=== PATIENT | male | born 1965 | race Hispanic/Latino ===

== ENCOUNTER 2017-12-27 14:45 | Emergency (ER) | payer OTHER, SELFPAY ==
[2017-12-27 14:50] VITALS: BP 130/80; PULSE 85; RESP 14; TEMP 36.9; O2SAT 99
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
[2017-12-27 15:30] VITALS: BP 106/68; PULSE 76; RESP 17; O2SAT 97
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
[2017-12-27 16:01] VITALS: BP 106/68; PULSE 77; RESP 16; O2SAT 98
== END 2017-12-27 16:02 | disposition home or self-care (01) ==
PROVIDERS: Emergency Provider Emergency Medicine
DX: S20.219A Contusion of unspecified front wall of thorax, initial encounter (principal); V43.62XA Car passenger injured in collision with other type car in traffic accident, initial encounter
CPT/HCPCS: 71046; 99282; 99283

== ENCOUNTER → 2020-07-05 10:59 | Outpatient (CLI) | payer OTHER, SELFPAY ==
[2020-07-05] MEDS: COVID-19 VACC #1, MRNA(MOD) 100 MCG/0.5 ML VIAL IM (11:22)
== END ==
PROVIDERS: Visit Provider Internal Medicine
DX: Z23 Encounter for immunization (principal)
CPT/HCPCS: 0011A; 91301

== ENCOUNTER → 2020-08-02 11:10 | Outpatient (CLI) | payer OTHER, SELFPAY ==
[2020-08-02] MEDS: COVID-19 VACC #2, MRNA(MOD) 100 MCG/0.5 ML VIAL IM (11:16)
== END ==
PROVIDERS: Visit Provider Internal Medicine
DX: Z23 Encounter for immunization (principal)
CPT/HCPCS: 0012A; 91301

== ENCOUNTER 2022-08-16 11:12 | Observation (INO) | payer SELFPAY ==
[2022-08-16] VITALS (11 sets, daily range): BP systolic 112–148; BP diastolic 60–81; PULSE 81–91; RESP 16–20; TEMP 36.6–37.9; O2SAT 94–99; BMI 22.6
[2022-08-16 11:45] LABS: Add Manual Diff / Slide Review NO; Basophils Absolute Auto 0 /uL (0-100); Basophils Percent Auto 0.3 % (0-2); Eosinophils Absolute Auto 0 /uL (0-450); Hematocrit 42.3 % (41-53); Hemoglobin 14.5 g/dL (13.5-17.5); Lymphocytes Absolute Auto 1000 /uL (1100-4500); Mean Corpuscular HGB Conc 34.3 % (30-36); Mean Corpuscular Hemoglobin 31.2 PG (26-34); Monocytes Absolute Auto 600 /uL (0-900); Monocytes Percent Auto 4.5 % (3-14); Neutrophils Absolute Auto 12500 /uL (1500-7000); Neutrophils Percent Auto 88.2 % (50-75); Platelet Count 332 X10^3/uL (150-400); Red Blood Cell Count 4.65 X10^6/uL (4.5-5.9); Red Cell Distribution Width 13.9 % (11.6-14.8); White Blood Cell Count 14.2 X10^3/uL (4.5-11.0)
[2022-08-16 11:57] LABS: Alanine Aminotransferase 28 IU/L (<50); Albumin 4.2 g/dL (3.5-5.0); Albumin Globulin Ratio 1.2 (1.0-2.8); Alkaline Phosphatase 84 U/L (38-126); Aspartate Aminotransferase 32 IU/L (17-59); BUN Creatinine Ratio 34.8 (6-22); Bilirubin Total 0.6 mg/dL (0.2-1.3); Blood Urea Nitrogen 16 mg/dL (9-20); Calcium 9.1 mg/dL (8.4-10.2); Carbon Dioxide 26 mmol/L (22-32); Chloride 103 mmol/L (98-107); Estimated Glomerular Filt Rate > 60 mL/min (>60); Globulin 3.4 g/dL (1.7-4.1); Glucose 126 mg/dL (70-100); HEMOLYSIS < 15 (0-50); Lipase 68 U/L (23-300); Sodium 136 mmol/L (137-145); Total Protein 7.6 g/dL (6.3-8.2)
[2022-08-16 11:58] LABS: Creatine Kinase 130 U/L (55-170)
[2022-08-16 12:09] LABS: Troponin I < 0.012 ng/mL (0.01-0.034)
[2022-08-16 12:13] LABS: CKMB % Relative Index 0.9 % (1.5-5.0); Creatine Kinase MB 1.14 ng/mL (<2.37)
--- NOTE | 2022-08-16 14:43 | DI.CT.S_ITS ---
PROCEDURE: CT ABDOMEN PELVIS W CON INDICATIONS: generalized/RLQ pn tenderness TECHNIQUE: After the administration of intravenous contrast, axial sections acquired from the lung bases to the pubic symphysis. Coronal and sagittal reformats were performed. For radiation dose reduction, the following was used: automated exposure control, adjustment of mA and/or kV according to patient size. COMPARISON: None. FINDINGS: Image quality: Excellent. Lung bases: Bibasilar atelectasis. Heart: Heart size is normal ABDOMEN: Liver: Liver is unremarkable in appearance without focal intrahepatic abnormalities. No intrahepatic or extrahepatic biliary ductal dilatation. Gallbladder: Gallbladder is unremarkable without CT evidence for acute inflammation. Biliary ducts: No intrahepatic or extrahepatic biliary ductal dilatation identified. Pancreas: Homogeneous enhancement without focal lesions or pancreatic ductal dilatation. No peripancreatic inflammation or organized fluid collections. Spleen: No splenomegaly Adrenal Glands: Unremarkable. Kidneys and Ureters: Left Kidney demonstrates no hydronephrosis. Partially exophytic hypodensity measuring fluid attenuation is compatible with a cyst. Left ureter is normal in course and caliber. No ureteral stone. There is a large, lobular heterogeneously enhancing mass in the inferior pole of the right kidney measuring approximately 7.5 x 7.0 cm in axial transverse dimension and approximately 11.5 cm in craniocaudal dimension. No right-sided hydronephrosis. Right ureter is normal in course and caliber. There is minimal perinephric stranding. Stomach and Bowel: Stomach, small bowel loops, and colon are unremarkable. The appendix is dilated up to 12 mm in diameter with minimal wall thickening and mild periappendiceal stranding. There are also associated appendicoliths. No evidence for perforation or abscess formation. Peritoneum: No abnormal intraperitoneal fluid. No free air. Ventral Wall: No hernias. Abdominal Nodes: No retroperitoneal or mesenteric adenopathy by size criteria. Vessels: Scattered atherosclerotic calcifications of the abdominal aorta and iliac vessels without aneurysmal dilatation. The inferior vena cava appears patent. PELVIS: Pelvic Organs: Unremarkable. Bladder: There is minimal circumferential urinary bladder wall thickening which may be related to incomplete distention; however, cystitis may have a similiar appearance. Pelvic Nodes: No enlarged lymph nodes. Miscellaneous: No hernias are seen. Bones: No acute vertebral body compression fractures. Multilevel spondylitic changes throughout the imaged spine. No suspicious osseous lesions. IMPRESSION: 1. Acute appendicitis without evidence for perforation or abscess formation. There are associated appendicoliths. 2. Large, lobulated right renal mass measuring 7.5 x 7.0 x 11.5 cm. This is highly suspicious for renal neoplasm. Recommend further evaluation by nonemergent urology consultation. Other chronic findings as above. Findings were discussed with Dr. Smith at 1643 hrs. Dictated by: Kurt Hudson M.D. on 08/16/2022 at 16:34 Approved by: Kurt Hudson M.D. on 08/16/2022 at 16:43
--- NOTE | 2022-08-16 14:45 | ED_ITS ---
HPI - Abdominal Pain <Eloina Smith PA-C - Last Filed: 08/16/22 18:44> General Chief Complaint: Abdominal Pain Stated Complaint: Upper ABD pain/N/bloating Time Seen by Provider: 08/16/22 14:06 Source: patient and family Mode of arrival: Ambulatory History of Present Illness HPI narrative: 57-year-old male presents with concern for abdominal pain since this morning at 4:00 a.m.. Patient states that he felt a little bit off last night when he went to bed, less had a meal at 8:00 p.m., around 4:00 a.m. he woke up due to pain in his belly. He states that he was getting up about every hour and going to the bathroom and having a small bowel movement and peeing thinking that this would help with his pain. His pain has progressively worsened since 4:00 a.m. and he describes it now as an 8/10. States it is worse if he sits up and walks or moves around. It is also worse if he presses on it. He states he is never had pain like this previously. Denies fevers but he feels like he is chilled. Patient states he still has appendix and has not had previous abdominal surgeries. Denies other symptoms including urgency, frequency, pain with urination, diarrhea, mucus or blood in his stool, dizziness lightheadedness, fevers or other symptoms. Related Data Home Medications Medication Instructions Recorded Confirmed No Known Home Medications 08/16/22 08/16/22 Allergies Allergy/AdvReac Type Severity Reaction Status Date / Time No Known Drug Allergies Allergy Verified 08/16/22 11:32 Review of Systems <Eloina Smith PA-C - Last Filed: 08/16/22 18:44> Review of Systems Narrative: See HPI Patient History <Eloina Smith PA-C - Last Filed: 08/16/22 18:44> Medical History Chronic back pain (Unknown) Shoulder pain (Unknown) Family History Father Age: 97 History of thyroid cancer Diabetes mellitus Essential hypertension Hyperlipidemia Mother Age: 88 History of stroke Essential hypertension Hyperlipidemia Sister Age: 55 Essential hypertension Grandfather No problems noted. Grandfather No problems noted. Social History household members: none Smoking Status: Current every day smoker alcohol intake: former Smoking Status: Current every day smoker Substance Use Type: does not use Exam <Eloina Smith PA-C - Last Filed: 08/16/22 18:44> Narrative Exam Narrative: GENERAL: 57 year old patient appears stated age. Well-developed patient, in mild distress. HEAD: Atraumatic. Normocephalic. EYES: Pupils equal round and reactive. Extraocular motions intact. No scleral icterus. No injection or drainage. ENT: Nose without bleeding, purulent drainage. Airway patent. NECK: Trachea midline. CARDIOVASCULAR: Regular rate and rhythm without murmurs, gallops, or rubs. RESPIRATORY: Clear to auscultation. Breath sounds equal bilaterally. No wheezes, rales, or rhonchi. GASTROINTESTINAL: There is generalized low abdominal tenderness primarily left and right, also periumbilical, there is significant tenderness over McBurney's point with positive Rovsing and positive obturator sign as well as positive heel tap. Negative Grier's sign. Abdomen soft, nondistended, no CVA tenderness. EXTREMITIES: No edema or joint tenderness. BACK: Nontender without deformity or crepitance. No flank tenderness. NEURO: AOx3. SKIN: No rash or erythema of visible areas Initial Vital Signs Initial Vital Signs: Vital Signs Temperature 98 F 08/16/22 11:14 Pulse Rate 85 08/16/22 11:14 Respiratory Rate 17 08/16/22 11:14 Blood Pressure 140/67 08/16/22 11:14 Pulse Oximetry 99 08/16/22 11:14 Oxygen Delivery Method Room Air 08/16/22 11:14 <Jodi Vieyra DO - Last Filed: 08/17/22 13:07> Initial Vital Signs Initial Vital Signs: Vital Signs Temperature 98 F 08/16/22 11:14 Pulse Rate 85 08/16/22 11:14 Respiratory Rate 17 08/16/22 11:14 Blood Pressure 140/67 08/16/22 11:14 Pulse Oximetry 99 08/16/22 11:14 Oxygen Delivery Method Room Air 08/16/22 11:14 Course <Eloina Smith PA-C - Last Filed: 08/16/22 18:44> Course Course Narrative: Radiology Dr. Hudson called regarding this patient's imaging study. Noted that he does have a current acute appendicitis that is uncomplicated but also noted concern for a large renal mass possibly consistent with renal cell carcinoma and strongly recommended close follow-up with Urology as an outpatient for further evaluation and care. 1642 Orders Ordered: Acetaminophen (Acetaminophen 325 Mg Tablet) 650 mg PO Q6H [facility] Last Admin: 08/17/22 11:30 Dose: 650 mg Documented By: Admin: 08/17/22 04:58 Dose: 650 mg Documented By: Admin: 08/17/22 02:52 Dose: Not Given Documented By: Admin: 08/16/22 18:00 Dose: 650 mg Documented By: SB Albuterol (Albuterol 2.5 Mg/3 Ml Neb (Adult)) 2.5 mg INH NOW PRN PRN Reason: Coughing, Wheezing, Dyspnea Amoxicillin/Clavulanate Potassium (Amoxicillin/Clav 875/125 Mg) 1 tab PO BID [facility] Last Admin: 08/17/22 11:30 Dose: 1 tab Documented By: JOSEPHINE Celecoxib (Celecoxib 200 Mg Capsule) 200 mg PO BID [facility] Last Admin: 08/17/22 08:22 Dose: 200 mg Documented By: Admin: 08/16/22 21:08 Dose: 200 mg Documented By: DAYANA Fentanyl (Fentanyl 100 Mcg/2 Ml Inj) 0 mcg IV Q5M PRN PRN Reason: Pain, Severe (7-10) Hydromorphone HCl (Hydromorphone 2 Mg Inj) 0 mg IV Q5M PRN PRN Reason: Pain, Severe (7-10) Sodium Chloride (Normal Saline 0.9%) 1,000 mls @ 100 mls/hr IV CONT [facility] Last Infusion: 08/17/22 04:58 Dose: 0 mls/hr Documented By: Admin: 08/16/22 18:03 Dose: 100 mls/hr Documented By: RON Meperidine HCl (Meperidine 50 Mg/Ml Inj) 25 mg IV PACUNOW PRN PRN Reason: Moderate pain or shivering Metoclopramide HCl (Metoclopramide 10 Mg/2 Ml Inj) 10 mg IV NOW PRN PRN Reason: Nausea And Vomiting Naloxone HCl (Naloxone 0.4 Mg/Ml Vial) 0.2 mg IV Q2MIN PRN PRN Reason: Opiate Reversal Ondansetron HCl (Ondansetron 4 Mg/2 Ml Inj) 4 mg IV NOW PRN PRN Reason: Nausea And Vomiting Last Admin: 08/16/22 14:52 Dose: 4 mg Documented By: AMU Ondansetron HCl (Ondansetron 4 Mg Odt) 4 mg PO NOW PRN PRN Reason: Nausea And Vomiting Last Admin: 08/16/22 21:08 Dose: 4 mg Documented By: AW Ondansetron HCl (Ondansetron 4 Mg/2 Ml Inj) 4 mg IV NOW PRN PRN Reason: Nausea And Vomiting Oxycodone HCl (Oxycodone Ir 5 Mg Tablet) 5 mg PO Q3HR PRN PRN Reason: Pain, Severe (7-10) Last Admin: 08/17/22 08:22 Dose: 5 mg Documented By: Admin: 08/17/22 04:57 Dose: 5 mg Documented By: Admin: 08/16/22 17:59 Dose: 5 mg Documented By: SB Oxycodone HCl (Oxycodone Ir 5 Mg Tablet) 5 mg PO PACUNOW PRN PRN Reason: Mild or moderate pain Discontinued Medications Bupivacaine HCl 30 ml/ (Epinephrine HCl 0.15 mg) 0 ml INJ NOW ONE Stop: 08/17/22 10:20 Last Admin: 08/17/22 10:20 Dose: 30 ml Documented By: PF Hydromorphone HCl (Hydromorphone 0.5 Mg Inj) 0.5 mg IV NOW ONE Stop: 08/16/22 14:42 Last Admin: 08/16/22 14:51 Dose: 0.5 mg Documented By: AMU Sodium Chloride (Normal Saline 0.9%) 1,000 mls @ 1,000 mls/hr IV BOLUS ONE Stop: 08/16/22 15:40 Last Infusion: 08/16/22 16:48 Dose: 0 mls/hr Documented By: Admin: 08/16/22 14:50 Dose: 1,000 mls/hr Documented By: AMU Piperacillin Sod/Tazobactam (Sod 4.5 gm/ Sodium Chloride) 100 mls @ 200 mls/hr IV NOW ONE Stop: 08/16/22 16:58 Last Infusion: 08/16/22 20:05 Dose: 0 mls/hr Documented By: Admin: 08/16/22 18:02 Dose: 200 mls/hr Documented By: SB Piperacillin Sod/Tazobactam (Sod 3.375 gm/ Sodium Chloride) 100 mls @ 25 mls/hr IV Q8H [facility] Last Infusion: 08/17/22 09:04 Dose: 25 mls/hr Documented By: Admin: 08/17/22 04:58 Dose: 25 mls/hr Documented By: Infusion: 08/17/22 02:52 Dose: 0 mls/hr Documented By: Admin: 08/16/22 21:08 Dose: 25 mls/hr Documented By: AW Lactated Ringer's (Lactated Ringers) 1,000 mls @ 42 mls/hr IV CONT [facility] Last Infusion: 08/17/22 11:08 Dose: 42 mls/hr Documented By: Admin: 08/17/22 10:57 Dose: 42 mls/hr Documented By: Infusion: 08/17/22 10:57 Dose: 42 mls/hr Documented By: Admin: 08/17/22 09:30 Dose: 42 mls/hr Documented By: CG Lactated Ringer's (Lactated Ringers) 1,000 mls @ 120 mls/hr IV CONT [facility] Last Admin: 08/17/22 11:26 Dose: Not Given Documented By: BT Scopolamine (Scopolamine 1 Patch) 1 patch TOP NOW ONE Stop: 08/16/22 17:02 Last Admin: 08/16/22 18:00 Dose: 1 patch Documented By: SB Consultations Consultation #1: Discussed this patient with Dr. Camacho who accepts the patient for obs and will do surgery versus antibiotics after discussion with the patient. Initiated Zosyn based on our discussion. [id number] Vital Signs Vital signs: Vital Signs - 8 hr 08/16/22 11:14 08/16/22 14:25 08/16/22 14:30 Temperature 98 F Pulse Rate 85 84 Respiratory Rate 17 Blood Pressure 140/67 148/81 H Pulse Oximetry 99 96 Oxygen Delivery Method Room Air 08/16/22 14:30 08/16/22 15:00 08/16/22 15:00 Temperature Pulse Rate 83 88 Respiratory Rate Blood Pressure 130/69 Pulse Oximetry 95 94 Oxygen Delivery Method 08/16/22 15:30 08/16/22 15:49 08/16/22 15:49 Temperature Pulse Rate 87 91 H Respiratory Rate 20 16 Blood Pressure 145/70 H Pulse Oximetry 98 97 Oxygen Delivery Method Room Air 08/16/22 16:00 08/16/22 16:00 08/16/22 16:30 Temperature Pulse Rate 83 Respiratory Rate Blood Pressure 148/71 H 148/72 H Pulse Oximetry 96 Oxygen Delivery Method 08/16/22 16:30 08/16/22 17:00 08/16/22 17:00 Temperature Pulse Rate 81 82 Respiratory Rate Blood Pressure 128/65 Pulse Oximetry 97 97 Oxygen Delivery Method <Jodi Vieyra, - Last Filed: 08/17/22 13:07> Orders Ordered: Acetaminophen (Acetaminophen 325 Mg Tablet) 650 mg PO Q6H [facility] Last Admin: 08/17/22 11:30 Dose: 650 mg Documented By: Admin: 08/17/22 04:58 Dose: 650 mg Documented By: Admin: 08/17/22 02:52 Dose: Not Given Documented By: Admin: 08/16/22 18:00 Dose: 650 mg Documented By: SB Albuterol (Albuterol 2.5 Mg/3 Ml Neb (Adult)) 2.5 mg INH NOW PRN PRN Reason: Coughing, Wheezing, Dyspnea Amoxicillin/Clavulanate Potassium (Amoxicillin/Clav 875/125 Mg) 1 tab PO BID [facility] Last Admin: 08/17/22 11:30 Dose: 1 tab Documented By: JOSEPHINE Celecoxib (Celecoxib 200 Mg Capsule) 200 mg PO BID [facility] Last Admin: 08/17/22 08:22 Dose: 200 mg Documented By: Admin: 08/16/22 21:08 Dose: 200 mg Documented By: AW Fentanyl (Fentanyl 100 Mcg/2 Ml Inj) 0 mcg IV Q5M PRN PRN Reason: Pain, Severe (7-10) Hydromorphone HCl (Hydromorphone 2 Mg Inj) 0 mg IV Q5M PRN PRN Reason: Pain, Severe (7-10) Sodium Chloride (Normal Saline 0.9%) 1,000 mls @ 100 mls/hr IV CONT [facility] Last Infusion: 08/17/22 04:58 Dose: 0 mls/hr Documented By: Admin: 08/16/22 18:03 Dose: 100 mls/hr Documented By: SB Meperidine HCl (Meperidine 50 Mg/Ml Inj) 25 mg IV PACUNOW PRN PRN Reason: Moderate pain or shivering Metoclopramide HCl (Metoclopramide 10 Mg/2 Ml Inj) 10 mg IV NOW PRN PRN Reason: Nausea And Vomiting Naloxone HCl (Naloxone 0.4 Mg/Ml Vial) 0.2 mg IV Q2MIN PRN PRN Reason: Opiate Reversal Ondansetron HCl (Ondansetron 4 Mg/2 Ml Inj) 4 mg IV NOW PRN PRN Reason: Nausea And Vomiting Last Admin: 08/16/22 14:52 Dose: 4 mg Documented By: AMU Ondansetron HCl (Ondansetron 4 Mg Odt) 4 mg PO NOW PRN PRN Reason: Nausea And Vomiting Last Admin: 08/16/22 21:08 Dose: 4 mg Documented By: AW Ondansetron HCl (Ondansetron 4 Mg/2 Ml Inj) 4 mg IV NOW PRN PRN Reason: Nausea And Vomiting Oxycodone HCl (Oxycodone Ir 5 Mg Tablet) 5 mg PO Q3HR PRN PRN Reason: Pain, Severe (7-10) Last Admin: 08/17/22 08:22 Dose: 5 mg Documented By: Admin: 08/17/22 04:57 Dose: 5 mg Documented By: Admin: 08/16/22 17:59 Dose: 5 mg Documented By: SB Oxycodone HCl (Oxycodone Ir 5 Mg Tablet) 5 mg PO PACUNOW PRN PRN Reason: Mild or moderate pain Discontinued Medications Bupivacaine HCl 30 ml/ (Epinephrine HCl 0.15 mg) 0 ml INJ NOW ONE Stop: 08/17/22 10:20 Last Admin: 08/17/22 10:20 Dose: 30 ml Documented By: PF Hydromorphone HCl (Hydromorphone 0.5 Mg Inj) 0.5 mg IV NOW ONE Stop: 08/16/22 14:42 Last Admin: 08/16/22 14:51 Dose: 0.5 mg Documented By: AMU Sodium Chloride (Normal Saline 0.9%) 1,000 mls @ 1,000 mls/hr IV BOLUS ONE Stop: 08/16/22 15:40 Last Infusion: 08/16/22 16:48 Dose: 0 mls/hr Documented By: Admin: 08/16/22 14:50 Dose: 1,000 mls/hr Documented By: AMU Piperacillin Sod/Tazobactam (Sod 4.5 gm/ Sodium Chloride) 100 mls @ 200 mls/hr IV NOW ONE Stop: 08/16/22 16:58 Last Infusion: 08/16/22 20:05 Dose: 0 mls/hr Documented By: Admin: 08/16/22 18:02 Dose: 200 mls/hr Documented By: SB Piperacillin Sod/Tazobactam (Sod 3.375 gm/ Sodium Chloride) 100 mls @ 25 mls/hr IV Q8H [facility] Last Infusion: 08/17/22 09:04 Dose: 25 mls/hr Documented By: Admin: 08/17/22 04:58 Dose: 25 mls/hr Documented By: Infusion: 08/17/22 02:52 Dose: 0 mls/hr Documented By: Admin: 08/16/22 21:08 Dose: 25 mls/hr Documented By: AW Lactated Ringer's (Lactated Ringers) 1,000 mls @ 42 mls/hr IV CONT [facility] Last Infusion: 08/17/22 11:08 Dose: 42 mls/hr Documented By: Admin: 08/17/22 10:57 Dose: 42 mls/hr Documented By: Infusion: 08/17/22 10:57 Dose: 42 mls/hr Documented By: Admin: 08/17/22 09:30 Dose: 42 mls/hr Documented By: CG Lactated Ringer's (Lactated Ringers) 1,000 mls @ 120 mls/hr IV CONT [facility] Last Admin: 08/17/22 11:26 Dose: Not Given Documented By: BT Scopolamine (Scopolamine 1 Patch) 1 patch TOP NOW ONE Stop: 08/16/22 17:02 Last Admin: 08/16/22 18:00 Dose: 1 patch Documented By: SB Vital Signs Vital signs: Vital Signs - 8 hr 08/16/22 11:14 08/16/22 14:25 08/16/22 14:30 Temperature 98 F Pulse Rate 85 84 Respiratory Rate 17 Blood Pressure 140/67 148/81 H Pulse Oximetry 99 96 Oxygen Delivery Method Room Air 08/16/22 14:30 08/16/22 15:00 08/16/22 15:00 Temperature Pulse Rate 83 88 Respiratory Rate Blood Pressure 130/69 Pulse Oximetry 95 94 Oxygen Delivery Method 08/16/22 15:30 08/16/22 15:49 08/16/22 15:49 Temperature Pulse Rate 87 91 H Respiratory Rate 20 16 Blood Pressure 145/70 H Pulse Oximetry 98 97 Oxygen Delivery Method Room Air 08/16/22 16:00 08/16/22 16:00 08/16/22 16:30 Temperature Pulse Rate 83 Respiratory Rate Blood Pressure 148/71 H 148/72 H Pulse Oximetry 96 Oxygen Delivery Method 08/16/22 16:30 08/16/22 17:00 08/16/22 17:00 Temperature Pulse Rate 81 82 Respiratory Rate Blood Pressure 128/65 Pulse Oximetry 97 97 Oxygen Delivery Method MDM - Abdominal Pain <Eloina Smith PA-C - Last Filed: 08/16/22 18:44> Differential Diagnosis Differential diagnosis: Likely abdominal pain, acute appendicitis, constipation and diverticulitis Medical Records Attestation: I reviewed the patient's medical records. Lab Data Attestation: I reviewed the patient's lab results. 08/16/22 11:25 08/16/22 11:25 Labs: Lab Results 08/16/22 08/16/22 08/16/22 Range/Units 11:25 11:25 11:25 WBC 14.2 H (4.5-11.0) X10^3/uL RBC 4.65 (4.5-5.9) X10^6/uL Hgb 14.5 (13.5-17.5) g/dL Hct 42.3 (41-53) % MCV 91.0 (80-100) fL MCH 31.2 (26-34) PG MCHC 34.3 (30-36) % RDW 13.9 (11.6-14.8) % Plt Count 332 (150-400) X10^3/uL Neut % (Auto) 88.2 H (50-75) % Lymph % (Auto) 7.0 L (25-40) % Sierra % (Auto) 4.5 (3-14) % Eos % (Auto) 0.0 L (2-4) % Baso % (Auto) 0.3 (0-2) % Neut # (Auto) 44106 H (0703-9149) /uL Lymph # (Auto) 1000 L (5758-2355) /uL Sierra # (Auto) 600 (0-900) /uL Eos # (Auto) 0 (0-450) /uL Baso # (Auto) 0 (0-100) /uL Sodium 136 L (137-145) mmol/L Potassium 4.0 (3.4-5.1) mmol/L Chloride 103 (98-107) mmol/L Carbon Dioxide 26 (22-32) mmol/L BUN 16 (9-20) mg/dL Creatinine 0.46 L (0.66-1.25) mg/dL Estimated GFR > 60 (>60) mL/min BUN/Creatinine Ratio 34.8 H (6-22) Glucose 126 H (70-100) mg/dL Calcium 9.1 (8.4-10.2) mg/dL Total Bilirubin 0.6 (0.2-1.3) mg/dL AST 32 (17-59) IU/L ALT 28 (<50) IU/L Alkaline Phosphatase 84 (38-126) U/L Total Creatine Kinase 130 (55-170) U/L CK-MB (CK-2) 1.14 (<2.37) ng/mL CK-MB (CK-2) Rel Index 0.9 L (1.5-5.0) % Troponin I < 0.012 (0.01-0.034) ng/mL Total Protein 7.6 (6.3-8.2) g/dL Albumin 4.2 (3.5-5.0) g/dL Globulin 3.4 (1.7-4.1) g/dL Albumin/Globulin Ratio 1.2 (1.0-2.8) Lipase 68 (23-300) U/L Point of care testing: Urine Dip Bedside Urine Glucose Negative Bedside Urine Bilirubin - Negative Bedside Urine Ketone +/- 5 Urine Specific Maljamar 1.015 Bedside Urine Occult Blood - Negative Bedside Urine pH 7 Bedside Urine Protein - Negative Bedside Urine Urobilinogen - Negative Bedside Urine Nitrite - Negative Bedside Urine Leukocytes - Negative Esterase Imaging Data CT scan - abdomen/pelvis: My Impression: Agree with Radiology interpretation Radiologist's Impression: [address] [address] [address] Scan Report Signed Patient: Andrew Stewart MR#: [id number] : 1965 Acct:[id number] Age/Sex: 57 / M Date of Service: 08/16/22 Loc: ED Accession Number: [id number] ?? Procedure: CT abdomen pelvis w con Ordering Provider: Eloina Smith P.A-C PROCEDURE:? CT ABDOMEN PELVIS W CON ? INDICATIONS:? generalized/RLQ pn tenderness ? TECHNIQUE:? After the administration of intravenous contrast, axial sections acquired from the lung bases to the pubic symphysis.? Coronal and sagittal reformats were performed.? For radiation dose reduction, the following was used:? automated exposure control, adjustment of mA and/or kV according to patient size.? ? COMPARISON:? None. ? FINDINGS:? Image quality:? Excellent.? ? Lung bases:? Bibasilar atelectasis. Heart:? Heart size is normal ? ABDOMEN: Liver: Liver is unremarkable in appearance without focal intrahepatic abnormalit ies. No intrahepatic or extrahepatic biliary ductal dilatation. Gallbladder:? Gallbladder is unremarkable without CT evidence for acute inflammation.? ? Biliary ducts: No intrahepatic or extrahepatic biliary ductal dilatation identified.? Pancreas: Homogeneous enhancement without focal lesions or pancreatic ductal dilatation.? No peripancreatic inflammation or organized fluid collections. Spleen:? No splenomegaly Adrenal Glands:? Unremarkable.? ? Kidneys and Ureters:? Left Kidney demonstrates no hydronephrosis.? Partially exophytic hypodensity measuring fluid attenuation is compatible with a cyst.? Left ureter is normal in course and caliber.? No ureteral stone. There is a large, lobular heterogeneously enhancing mass in the inferior pole of the right kidney measuring approximately 7.5 x 7.0 cm in axial transverse dimension and approximately 11.5 cm in craniocaudal dimension.? No right-sided hydronephrosis.? Right ureter is normal in course and caliber.? There is minimal perinephric stranding. ? Stomach and Bowel:? Stomach, small bowel loops, and colon are unremarkable.? The appendix is dilated up to 12 mm in diameter with minimal wall thickening and mild periappendiceal stranding.? There are also associated appendicoliths.? No evidence for perforation or abscess formation. Peritoneum:? No abnormal intraperitoneal fluid.? No free air.? ? Ventral Wall: ? No hernias.? Abdominal Nodes:? No retroperitoneal or mesenteric adenopathy by size criteria.? Vessels: Scattered atherosclerotic calcifications of the abdominal aorta and iliac vessels without aneurysmal dilatation.? The inferior vena cava appears patent. ? PELVIS: Pelvic Organs:? Unremarkable.? ? Bladder:? There is minimal circumferential urinary bladder wall thickening which may be related to incomplete distention; however, cystitis may have a similiar appearance.? Pelvic Nodes: No enlarged lymph nodes.? Miscellaneous: No hernias are seen. ? ? ? Bones:? No acute vertebral body compression fractures. Multilevel spondylitic changes throughout the imaged spine.? No suspicious osseous lesions. ? IMPRESSION:? ? 1. Acute appendicitis without evidence for perforation or abscess formation.? There are associated appendicoliths. ? 2. Large, lobulated right renal mass measuring 7.5 x 7.0 x 11.5 cm.? This is highly suspicious for renal neoplasm.? Recommend further evaluation by nonemergent urology consultation.? ? Other chronic findings as above.? ? Findings were discussed with Dr. Smith at 1643 hrs. ? ? ? Dictated by: Kurt Hudson M.D. on 08/16/2022 at 16:34 ? ? Approved by: Kurt Hudson M.D. on 08/16/2022 at 16:43?? Treatment and Disposition Shared decision making:: Shared decision-making was used indeterminate this portions plan of care treatment in the emergency department MDM Narrative Medical decision making narrative: This is a 57-year-old male who presents with concern for fairly rapid onset of abdominal pain around 4:00 a.m. generalized worsening now 8/10. Exam findings are concerning for appendicitis versus possibly other infectious intra-abdominal process. Patient does have a leukocytosis greater than 14. Pain control, fluid bolus and CT abdomen pelvis with contrast are ordered for further evaluation and care after initial exam. CT returns notable for uncomplicated acute appendicitis with appendicoliths present, radiology also notes the patient has a large approximately 7-1/2 cm x 7-1/2 cm renal mass likely consistent with renal cell carcinoma. Discussed the patient with on-call surgeon Dr. Camacho who agrees to accept the patient under obs and will either performed surgery or treat with antibiotics. Initiated Zosyn in ER. <Jodi Vieyra, DO - Last Filed: 08/17/22 13:07> Lab Data Labs: Lab Results 08/16/22 08/16/22 08/16/22 Range/Units 11:25 11:25 11:25 WBC 14.2 H (4.5-11.0) X10^3/uL RBC 4.65 (4.5-5.9) X10^6/uL Hgb 14.5 (13.5-17.5) g/dL Hct 42.3 (41-53) % MCV 91.0 (80-100) fL MCH 31.2 (26-34) PG MCHC 34.3 (30-36) % RDW 13.9 (11.6-14.8) % Plt Count 332 (150-400) X10^3/uL Neut % (Auto) 88.2 H (50-75) % Lymph % (Auto) 7.0 L (25-40) % Sierra % (Auto) 4.5 (3-14) % Eos % (Auto) 0.0 L (2-4) % Baso % (Auto) 0.3 (0-2) % Neut # (Auto) 69605 H (7945-6059) /uL Lymph # (Auto) 1000 L (7693-5931) /uL Sierra # (Auto) 600 (0-900) /uL Eos # (Auto) 0 (0-450) /uL Baso # (Auto) 0 (0-100) /uL Sodium 136 L (137-145) mmol/L Potassium 4.0 (3.4-5.1) mmol/L Chloride 103 (98-107) mmol/L Carbon Dioxide 26 (22-32) mmol/L BUN 16 (9-20) mg/dL Creatinine 0.46 L (0.66-1.25) mg/dL Estimated GFR > 60 (>60) mL/min BUN/Creatinine Ratio 34.8 H (6-22) Glucose 126 H (70-100) mg/dL Calcium 9.1 (8.4-10.2) mg/dL Total Bilirubin 0.6 (0.2-1.3) mg/dL AST 32 (17-59) IU/L ALT 28 (<50) IU/L Alkaline Phosphatase 84 (38-126) U/L Total Creatine Kinase 130 (55-170) U/L CK-MB (CK-2) 1.14 (<2.37) ng/mL CK-MB (CK-2) Rel Index 0.9 L (1.5-5.0) % Troponin I < 0.012 (0.01-0.034) ng/mL Total Protein 7.6 (6.3-8.2) g/dL Albumin 4.2 (3.5-5.0) g/dL Globulin 3.4 (1.7-4.1) g/dL Albumin/Globulin Ratio 1.2 (1.0-2.8) Lipase 68 (23-300) U/L Point of care testing: Urine Dip Bedside Urine Glucose Negative Bedside Urine Bilirubin - Negative Bedside Urine Ketone +/- 5 Urine Specific Maljamar 1.015 Bedside Urine Occult Blood - Negative Bedside Urine pH 7 Bedside Urine Protein - Negative Bedside Urine Urobilinogen - Negative Bedside Urine Nitrite - Negative Bedside Urine Leukocytes - Negative Esterase Discharge Plan Departure Patient Disposition: Admitted as Observation Clinical Impression: Acute appendicitis Admit Date/Time: 08/16/22 17:02 Admit Provider: Kaykay Camacho <Jodi Vieyra DO - Last Filed: 08/17/22 13:07> Cosign ED Attending Cosignature Attestation: I was immediately available in the department for consultation. Documentation has been reviewed.
[2022-08-16] MEDS: SODIUM CHLORIDE 0.9% 1,000 ML 1000 ML IV (14:50)
[2022-08-16] MEDS: HYDROMORPHONE 0.5 MG INJ IV (14:51)
[2022-08-16] MEDS: ONDANSETRON 4 MG/2 ML INJ IV (14:52)
[2022-08-16] MEDS: OXYCODONE IR 5 MG TABLET PO (17:59)
[2022-08-16] MEDS: SCOPOLAMINE 1 PATCH TOP (18:00)
[2022-08-16] MEDS: ACETAMINOPHEN 325 MG TABLET 650 MG PO (18:00)
[2022-08-16] MEDS: PIPERACILLIN/TAZO 4.5 GM in SODIUM CHLORIDE 0.9% 100 ML IV (18:02)
[2022-08-16] MEDS: SODIUM CHLORIDE 0.9% 1,000 ML 100 ML IV (18:03)
[2022-08-16 18:29] LABS: COVID19 -Nasal RAPID Negative (Negative)
--- NOTE | 2022-08-16 18:58 | PC.NURSE ---
Day shift: Patient transported up to floor with ED nurse and his 2 nieces. Patient speaks primarily Danish, though he states he understands most Sami. Patient would like a mechanical intern for when the surgeon comes to talk about his procedure. Plan for lapriscopic appendectomy tomorrow. Patient is independent with ADLs. R AC IV running IV fluids and IV antibx. Patient states pain 8\10 with movement and 2/10 when lying still. R abdominal pain. Skin intact. VS WNL.
[2022-08-16] MEDS: ONDANSETRON 4 MG ODT PO (21:08)
[2022-08-16] MEDS: PIPERACILLIN/TAZO 3.375 GM in SODIUM CHLORIDE 0.9% 100 ML IV (21:08)
[2022-08-16] MEDS: CELECOXIB 200 MG CAPSULE PO (21:08)
[2022-08-17] VITALS (13 sets, daily range): BP systolic 104–136; BP diastolic 46–66; PULSE 76–98; RESP 16–22; TEMP 36.6–37.7; O2SAT 93–98
--- NOTE | 2022-08-17 | PATH_ITS ---
[facility] Accession Number: [id number] No. of containers..01 Tissue . 01 Material submitted: . appendix - APPENDIX . 01 Diagnosis: Appendix, Appendectomy: Acute suppurative appendicitis and periappendicitis. MRV 08/22/2022 1452 Local . 01 Electronically signed: . Jojo Carranza MD, Pathologist NPI- [id number] . 01 Gross description: . The specimen is received in formalin labeled with the patient's name, , and appendix, and consists of a vermiform appendix measuring 6.2 cm in length by 1.1 cm in diameter with arredondo-olivier serosa and adherent olivier material consistent with exudate. A moderate amount of mesoappendix is attached extending out to 2.1 cm. The margin is received closed with erma which are removed and the margin is inked blue. Sectioning reveals the lumen contains brown semi-solid material and averages 0.6 cm in diameter. The acuña are arredondo-olivier and average 0.1 cm thick with no perforations or lesions grossly identified. Fleet Driver sections to include the margin, one-half of the bisected distal tip, and cross-section are submitted in cassette A1. ([id number]) /ANNA 08/21/2022 1135 Local . 01 Pathologist provided ICD-10: K35.80 . 01 CPT . 933965 Specimen Comment: A courtesy copy of this report has been sent to [phone] Performed at: 01 [facility] [address] [place] [address] [address] [facility], [place], [place] [id number] MD Greg Garvey MD Phone: [phone]
[2022-08-17] MEDS: OXYCODONE IR 5 MG TABLET PO ×2 (04:57→08:22)
[2022-08-17] MEDS: ACETAMINOPHEN 325 MG TABLET 650 MG PO ×2 (04:58→11:30)
[2022-08-17] MEDS: PIPERACILLIN/TAZO 3.375 GM in SODIUM CHLORIDE 0.9% 100 ML IV (04:58)
--- NOTE | 2022-08-17 07:55 | SUR.OPER ---
Supine on padded OR bed, head on pillow, arms padded and tucked at sides, legs uncrossed, safety belt at thigh, tape over blanket over lower legs .
--- NOTE | 2022-08-17 07:56 | P.HP_ITS ---
History of Present Illness History of Present Illness Date Patient Seen: 08/17/22 Time Patient Seen: 07:56 Chief complaint: Upper ABD pain/N/bloating Narrative: Over 24hrs of abdominal pain, localizing to right sided abdomen. 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 Abdominal pain is sharp and intermittent, associated with nausea and bloating. No blood in urine per patient. [facility] Medical History Chronic back pain (Unknown) Shoulder pain (Unknown) Family History Father Age: 97 History of thyroid cancer Diabetes mellitus Essential hypertension Hyperlipidemia Mother Age: 88 History of stroke Essential hypertension Hyperlipidemia Sister Age: 55 Essential hypertension Grandfather No problems noted. Grandfather No problems noted. Social History household members: none Smoking Status: Current every day smoker alcohol intake: former Meds Home Medications and Allergies Home Medications Medication Instructions Recorded Confirmed Type No Known Home Medications 08/16/22 08/16/22 History Allergies Allergy/AdvReac Type Severity Reaction Status Date / Time No Known Drug Allergies Allergy Verified 08/16/22 11:32 Review of Systems Review of Systems ROS: Yes All systems reviewed with the patient and are negative except as otherwise documented Exam Vital Signs (past 8 hours): - 08/17/22 04:08 Temperature 99.8 F H Pulse Rate 86 Respiratory Rate 16 Blood Pressure 118/63 Pulse Oximetry 95 Oxygen Delivery Method Room Air Oxygen Flow Rate 0 Const General: cooperative, healthy appearing and comfortable Nutritional Appearance: average body habitus [facility] Head: normocephalic and laceration (left forehead and holiness lacerations with bruising, no issues) Face and sinus: normal facial exam Eyes General: appearance normal, both eyes and all related structures Sclera: sclerae normal Neck Neck: trachea midline Resp Effort & Inspection: normal respiratory effort and able to speak in complete sentences Cardio Rate: regular rate Rhythm: regular rhythm GI Palpation: soft Other: mild tenderness to palpation RLQ. Skin General: turgor normal Neuro General: patient alert, patient awake and patient oriented x3 Cognition: normal cognition Extrem Left upper extremity: edema (bruising and edema with a upper arm posterior hematoma. no wounds. ) Right lower extremity: edema (2 anterior tibial wounds from previous lacerat ions, sutures removed) Details: 3+ Left lower extremity: edema Details: 1+ Other: single anterior old laceration with sutures removed. Psych Mental Status: mental status grossly normal Judgment: judgment good Objective Labs 08/16/22 11:25 08/16/22 11:25 Labs: Laboratory Results - last 24 hr 08/16/22 08/16/22 08/16/22 11:25 11:25 11:25 WBC 14.2 H RBC 4.65 Hgb 14.5 Hct 42.3 MCV 91.0 MCH 31.2 MCHC 34.3 RDW 13.9 Plt Count 332 Neut % (Auto) 88.2 H Lymph % (Auto) 7.0 L [place] % (Auto) 4.5 Eos % (Auto) 0.0 L Baso % (Auto) 0.3 Neut # (Auto) 80453 H Lymph # (Auto) 1000 L [place] # (Auto) 600 Eos # (Auto) 0 Baso # (Auto) 0 Sodium 136 L Potassium 4.0 Chloride 103 Carbon Dioxide 26 BUN 16 Creatinine 0.46 L Estimated GFR > 60 BUN/Creatinine Ratio 34.8 H Glucose 126 H Calcium 9.1 Total Bilirubin 0.6 AST 32 ALT 28 Alkaline Phosphatase 84 Total Creatine Kinase 130 CK-MB (CK-2) 1.14 CK-MB (CK-2) Rel Index 0.9 L Troponin I < 0.012 Total Protein 7.6 Albumin 4.2 Globulin 3.4 Albumin/Globulin Ratio 1.2 Lipase 68 SARS-CoV-2 (PCR) 08/16/22 18:05 WBC RBC Hgb Hct MCV MCH MCHC RDW Plt Count Neut % (Auto) Lymph % (Auto) [place] % (Auto) Eos % (Auto) Baso % (Auto) Neut # (Auto) Lymph # (Auto) [place] # (Auto) Eos # (Auto) Baso # (Auto) Sodium Potassium Chloride Carbon Dioxide BUN Creatinine Estimated GFR BUN/Creatinine Ratio Glucose Calcium Total Bilirubin AST ALT Alkaline Phosphatase Total Creatine Kinase CK-MB (CK-2) CK-MB (CK-2) Rel Index Troponin I Total Protein Albumin Globulin Albumin/Globulin Ratio Lipase SARS-CoV-2 (PCR) Negative Assessment & Plan Assessment & Plan narrative: Multiple falls with facial wounds, soft tissue contusions and lower bilateral extremity lacerations that have superficial infections addressed already with suture removal. Plan: compression dressing on both lower legs with Daily wet to dry dressings of anterior lower leg wounds. compression wrap on left arm from wrist to shoulder. Can remove face sutures in 2 days. COVID-19 COVID-19 status: Negative Time Spent With Patient Time with patient: less than 30 minutes
[2022-08-17] MEDS: CELECOXIB 200 MG CAPSULE PO (08:22)
--- NOTE | 2022-08-17 08:31 | P.HP_ITS ---
History of Present Illness History of Present Illness Date Patient Seen: 08/17/22 Time Patient Seen: 08:32 Chief complaint: Upper ABD pain/N/bloating Narrative: Over 24hrs of abdominal pain, localizing to right sided abdomen. 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 Abdominal pain is sharp and intermittent, associated with nausea and bloating. No blood in urine per patient. [facility] Medical History Chronic back pain (Unknown) Shoulder pain (Unknown) Family History Father Age: 97 History of thyroid cancer Diabetes mellitus Essential hypertension Hyperlipidemia Mother Age: 88 History of stroke Essential hypertension Hyperlipidemia Sister Age: 55 Essential hypertension Grandfather No problems noted. Grandfather No problems noted. Social History household members: none Smoking Status: Current every day smoker alcohol intake: former Meds Home Medications and Allergies Home Medications Medication Instructions Recorded Confirmed Type No Known Home Medications 08/16/22 08/16/22 History Allergies Allergy/AdvReac Type Severity Reaction Status Date / Time No Known Drug Allergies Allergy Verified 08/16/22 11:32 Review of Systems Review of Systems ROS: Yes All systems reviewed with the patient and are negative except as otherwise documented Exam Vital Signs (past 8 hours): - 08/17/22 04:08 08/17/22 08:07 Temperature 99.8 F H 99.0 F Pulse Rate 86 85 Respiratory Rate 16 16 Blood Pressure 118/63 118/58 L Pulse Oximetry 95 98 Oxygen Delivery Method Room Air Oxygen Flow Rate 0 Const General: cooperative and comfortable Nutritional Appearance: average body habitus [facility] Head: normocephalic and atraumatic Eyes General: appearance normal, both eyes and all related structures Sclera: sclerae normal Neck Neck: trachea midline Resp Effort & Inspection: normal respiratory effort and able to speak in complete sentences Cardio Rate: regular rate Rhythm: regular rhythm GI Palpation: soft Other: RLQ tenderness to palpation Skin General: elasticity normal Neuro General: patient alert, patient awake and patient oriented x3 Psych Judgment: judgment good Objective Labs 08/16/22 11:25 08/16/22 11:25 Labs: Laboratory Results - last 24 hr 08/16/22 08/16/22 08/16/22 11:25 11:25 11:25 WBC 14.2 H RBC 4.65 Hgb 14.5 Hct 42.3 MCV 91.0 MCH 31.2 MCHC 34.3 RDW 13.9 Plt Count 332 Neut % (Auto) 88.2 H Lymph % (Auto) 7.0 L [place] % (Auto) 4.5 Eos % (Auto) 0.0 L Baso % (Auto) 0.3 Neut # (Auto) 09981 H Lymph # (Auto) 1000 L [place] # (Auto) 600 Eos # (Auto) 0 Baso # (Auto) 0 Sodium 136 L Potassium 4.0 Chloride 103 Carbon Dioxide 26 BUN 16 Creatinine 0.46 L Estimated GFR > 60 BUN/Creatinine Ratio 34.8 H Glucose 126 H Calcium 9.1 Total Bilirubin 0.6 AST 32 ALT 28 Alkaline Phosphatase 84 Total Creatine Kinase 130 CK-MB (CK-2) 1.14 CK-MB (CK-2) Rel Index 0.9 L Troponin I < 0.012 Total Protein 7.6 Albumin 4.2 Globulin 3.4 Albumin/Globulin Ratio 1.2 Lipase 68 SARS-CoV-2 (PCR) 08/16/22 18:05 WBC RBC Hgb Hct MCV MCH MCHC RDW Plt Count Neut % (Auto) Lymph % (Auto) [place] % (Auto) Eos % (Auto) Baso % (Auto) Neut # (Auto) Lymph # (Auto) [place] # (Auto) Eos # (Auto) Baso # (Auto) Sodium Potassium Chloride Carbon Dioxide BUN Creatinine Estimated GFR BUN/Creatinine Ratio Glucose Calcium Total Bilirubin AST ALT Alkaline Phosphatase Total Creatine Kinase CK-MB (CK-2) CK-MB (CK-2) Rel Index Troponin I Total Protein Albumin Globulin Albumin/Globulin Ratio Lipase SARS-CoV-2 (PCR) Negative Assessment & Plan Assessment & Plan narrative: Acute appendicitis with multiple fecal liths 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 COVID-19 COVID-19 status: Negative Time Spent With Patient Time with patient: 30 to 49 minutes with 50% spent counseling/coordinating care
[2022-08-17] MEDS: LACTATED RINGERS 1,000 ML 42 ML IV ×2 (09:30→10:57)
[2022-08-17] MEDS: BUPIVACAINE 0.25% (PF) 30 ML, EPINEPHrine 0.15 MG INJ (10:20)
--- NOTE | 2022-08-17 10:37 | PM.OP.1 ---
Operative Date/Time/Diagnoses Date of procedure: 08/17/22 Time of procedure: 10:37 Pre-op diagnosis: Acute appendicitis with fecal lift Post-op diagnosis: same Procedure & Clinicians Procedure: Laparoscopic appendectomy Same procedure as scheduled: Yes Indications: Acute appendicitis with fecal lith Surgeon: Kaykya Camacho Click Yes if Unassisted: Yes Anesthesia Type: General Operative Notes Findings: Gangrenous appendicitis stage III Closure Type: primary Specimen(s): other (Appendix) Estimated Blood Loss (mL): 10 Blood products transfused: none Procedure in detail: Preop diagnosis: Acute appendicitis Postop diagnosis: Gangrenous appendicitis Operative procedure: Laparoscopic appendectomy Anesthetic: General with ET tube intubation with local Surgeon: Tabitha Camcaho MD Findings: Gangrenous appendicitis stage III Procedure: Patient placed in a supine position. Prepped and draped in sterile fashion to expose his abdomen. Infraumbilical port site was placed using an open technique a 12 mm port. Insufflation began all other ports placed under direct vision. Other ports included a 5 mm port in the suprapubic area and a 5 mm port in the left lateral abdomen. Appendix was identified and lifted cephalad for exposure. Appendiceal mesentery was taken down with electrocautery and excellent hemostasis. The base of the appendix was healthy and accepted a linear blue load OBIE stapling device. The amputated appendix was placed into an Endo-Catch bag and pulled through the infraumbilical port site intact. I suctioned the abdomen to remove residual blood and physiologic fluid. I then removed all ports and began closure. Closure consisted of interrupted 0 Vicryl for fascial closure. Skin was closed with a running 4-0 Vicryl. Steri-Strips and sterile dressings were placed. Patient was awakened, extubated, taken to recovery room in stable condition. Needle, instrument, sponge counts were correct. Blood loss: 10 mL Specimen: Appendix Complications: none Post-operative Condition: stable Disposition: PACU
[2022-08-17] MEDS: AMOXICILLIN/CLAV 875/125 MG 1 TAB PO (11:30)
--- NOTE | 2022-08-17 12:47 | CM.DANOTE ---
DCP: Case received, EMR reviewed. As this DCP was going to meet patient, was just taken down to surgery. Completed DCP assessment based upon information currently available. Patient is a 57 year old male who admitted yesterday evening to the care of the hospitalist team. PCP: None currently Payer: no insurance (kahlil application given). Patient came to the hospital via private vehicle secondary to over 24 hours of abdominal pain, localizing to his right side. Patient was admitted for acute appendicitis. Notes also indicate that there is a renal mass, recommending nonemergent urology consult. Attempted to meet with patient, but went down to surgery. Patient resides in [place], has family here in [place]. It is noted that he has no insurance, and that a Kahl[employer] application was given. Emailed the change group to inquire if patient could qualify for [employer]. P: DCP to continue to follow for needs. Plan is home when deemed medically stable. Awaiting to hear back from admission counselors. Ginger Benedict RN/Acid Mixer Discharge Planning/Care Management CM Discharge Assessment Start: 08/17/22 12:45 Freq: Status: Active Protocol: Document 08/17/22 12:45 (Rec: 08/17/22 12:47 [id number]) Discharge Planning Assessment Assigned [employer] Ginger Benedict RN/Acid Mixer Advance Directives? No History Provided By Medical Record Has Patient been admitted in last 30 No days? Prior Living Arrangements Apartment/Condo Household Members none Type of transporation used prior to Drives own vehicle admit Independent with ADL's Yes Is patient alert and oriented? Yes Caregiver for Another No Barriers to Discharge No Comment Patient has no insurance, kahlil application was given Discharge Plan Home Transportation Arrangement Family Referrals Initiated None needed Review Status In Process Next Review Type Continued Stay Review
--- NOTE | 2022-08-17 15:15 | P.DS_ITS ---
History of Present Illness History of Present Illness Date Patient Seen: 08/17/22 Time Patient Seen: 15:15 Chief complaint: Upper ABD pain/N/bloating Narrative: Over 24hrs of abdominal pain, localizing to right sided abdomen. 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 Abdominal pain is sharp and intermittent, associated with nausea and bloating. No blood in urine per patient. Discharge Providers Provider Date of admission: 08/16/22 17:02 Discharge Date: 08/17/22 Primary care physician: Doctor Juan José MD Discharge provider: Kaykay Camacho MD Summary Hospital Course Discharge Diagnosis: appendicitis and incidental finding of right kidney Hospital Course: IV antibiotics and lap appy. outpatient referral to Dr. Staley. Status at Discharge Cognitive/behavioral status at discharge: at baseline, oriented Functional status at discharge: independent ambulation Overall status at discharge: patient is progressing back to baseline Time Spent with Patient Time spent: Less than 30 minutes Exam Vital Signs (past 8 hours): - 08/17/22 08:07 08/17/22 10:42 08/17/22 10:46 Temperature 99.0 F 98.6 F Pulse Rate 85 98 H 87 Respiratory Rate 16 22 21 Blood Pressure 118/58 L 136/64 124/59 L Pulse Oximetry 98 98 Oxygen Delivery Method Simple Mask Simple Mask Oxygen Flow Rate 97 8 08/17/22 10:52 08/17/22 10:56 08/17/22 11:01 Temperature Pulse Rate 91 H 84 83 Respiratory Rate 20 21 18 Blood Pressure 124/46 L 119/60 121/58 L Pulse Oximetry 95 94 94 Oxygen Delivery Method Room Air Room Air Room Air Oxygen Flow Rate 08/17/22 11:07 Temperature Pulse Rate 94 H Respiratory Rate 20 Blood Pressure 111/66 Pulse Oximetry 98 Oxygen Delivery Method Room Air Oxygen Flow Rate Oxygen Delivery Method Room Air Oxygen Flow Rate 8 Narrative Exam Narrative: no complications Objective Labs 08/16/22 11:25 08/16/22 11:25 Labs: Laboratory Results - last 24 hr 08/16/22 18:05 SARS-CoV-2 (PCR) Negative [facility] Medical History Chronic back pain (Unknown) Shoulder pain (Unknown) Family History Father Age: 97 History of thyroid cancer Diabetes mellitus Essential hypertension Hyperlipidemia Mother Age: 88 History of stroke Essential hypertension Hyperlipidemia Sister Age: 55 Essential hypertension Grandfather No problems noted. Grandfather No problems noted. Social History household members: none Smoking Status: Current every day smoker alcohol intake: former Discharge Assessment & Plan Assessment and Plan Assessment: appendicitis, s/p lap appy Plan of Treatment: home on 5 days Augmentin follow up 2-4 wks make appointment w Dr. Staley for right renal mass needs screening colonoscopy Discharge Plan Discharge Plan Patient Disposition: Home Discharge orders & Medications Prescriptions: New celecoxib [Celebrex] 200 mg Capsule 200 mg PO BID Qty: 20 0RF amoxicillin-pot clavulanate 875-125 mg Tablet 1 tab PO BID Qty: 10 0RF oxycodone 5 mg Tablet 5 mg PO Q3HR PRN (Reason: Pain, Severe (7-10)) Qty: 10 0RF Follow up/Referrals: Kaykay Camacho MD [Physician] - Tigre Maya MD [Physician] - (right renal mass referred from Doug) Doctor Can MD [Primary Care Provider] - Diet/Activity/Treatments Diet: Diet as Tolerated Other treatments: call for appointment this Friday w Dr. Staley about the mass on your right kidney Skin/Wound/Dressing Care Report to your healthcare provider any signs of infection, such as:: chills, fever, increased pain and unusual drainage Visit Report/Discharge Packet Instructions: Appendicitis, [facility]: Wound Care Stand Alone Forms: Patient Portal/API, Surgery Discharge Discharge Data Primary Care Provider: Doctor Juan José Attending Provider: Kaykay Camacho Admit Date/Time: 08/16/22 17:02
== END 2022-08-17 15:55 | disposition home or self-care (01) ==
LOC: ED 16:56 → AC 17:00
PROVIDERS: Emergency Medicine; Admitting Provider Surgery; Emergency Provider Student in an Organized Health Care Education/Training Program; Referring Provider Student in an Organized Health Care Education/Training Program; Visit Provider Surgery
PROC: 0DTJ4ZZ Resection of Appendix, Percutaneous Endoscopic Approach (ICD-10-PCS; CPT 44970; principal; 2022-08-17 10:00)
DX: K35.891 Other acute appendicitis without perforation, with gangrene (principal); K38.1 Appendicular concretions; R93.421 Abnormal radiologic findings on diagnostic imaging of right kidney; Z20.822 Contact with and (suspected) exposure to COVID-19
CPT/HCPCS: 44970; 36415; 74177; 80053; 81003; 82550; 82553; 83690; 84484; 85025; 87635; 93005; 96361; 96365; 96366; 96375; 99221; 99284; C9803; G0378; J0171; J1100; J1170; J2250; J2405; J2543; J2704; J3010; Q9967